=== PATIENT | male | born 1970 | race Caucasian/White ===

== ENCOUNTER 2016-08-29 20:53 | Emergency (ER) | payer BC ==
[~2016-08-29] VITALS: Ht 175.3 cm; Wt 110.5 kg
[~2016-08-29 20:53] MED LIST: AMOXICILLIN 8751 TAB PO; NORCO 325 MG-51 TAB PO
[2016-08-29 20:56] VITALS: TEMP 98.5
[2016-08-29] MEDS ORDERED: PRINZIDE 25 MG-1 TAB PO (20:58)
[2016-08-29 21:29] LABS: BASO % 0.5 % (0.0-2.0); EOS # 0.2 (0.0-0.7); EOS % 2.7 % (0-4.0); GRAN % 47.2 % (42.2-75.2); HEMATOCRIT 47.5 % (42.0-52.0); HEMOGLOBIN 15.9 g/dl (13.5-18.0); LYMPH # 3.5 (1.2-3.4); LYMPH % 41.5 % (20.0-51.0); MEAN CELL VOLUME 88 fl (80.0-100.0); MEAN CORPUSCULAR HEMOGLOBIN 29 pg (27.0-31.0); MEAN CORPUSCULAR HGB CONC 34 g/dl (33.0-37.0); MEAN PLATELET VOLUME 10.9 fl (7.4-10.4); MONO # 0.7 (0.1-0.6); MONO % 7.9 % (1.7-9.3); PLATELET COUNT 210 K/mm3 (130-400); RED BLOOD COUNT 5.41 M/mm3 (4.20-5.60); REDCELL DISTRIBUTION WIDTH-CV 12.7 % (11.5-14.5); WHITE BLOOD COUNT 8.4 K/mm3 (4.8-10.8)
[2016-08-29 21:37] LABS: PH 6 (5-8); SQUAMOUS EPITHELIAL None Seen /hpf; URINE APPEARANCE Clear; URINE BACTERIA None Seen /hpf; URINE BILIRUBIN Negative (NEGATIVE); URINE BLOOD Negative (NEGATIVE); URINE COLOR Yellow; URINE GLUCOSE Negative (NEGATIVE); URINE KETONE Negative (NEGATIVE); URINE RBC None Seen /hpf; URINE WBC 0-2 /hpf
[2016-08-29 22:04] LABS: ADJUSTED CALCIUM 9.1 mg/dL (8.4-10.2); ALANINE AMINOTRANSFERASE 64 U/L (21-72); ALBUMIN 4.4 gm/dL (3.5-5.0); ALKALINE PHOSPHATASE 87 U/L (50-136); ANION GAP 12 mmol/L (7-16); BLOOD UREA NITROGEN 16 mg/dL (9-20); C-REACTIVE PROTEIN < 0.5 mg/dL (0.0-0.9); CALCIUM 9.4 mg/dL (8.4-10.2); CARBON DIOXIDE 29 mmol/L (22-30); CHLORIDE 100 mmol/L (98-107); GLUCOSE 103 mg/dL (74-106); LIPASE 54 U/L (23-300); POTASSIUM 4.1 mmol/L (3.4-5.0); SODIUM 141 mmol/L (137-145); TOTAL PROTEIN 7.7 gm/dL (6.4-8.2)
[2016-08-29 22:14] LABS: TROPONIN-I < 0.012 ng/mL (0.000-0.034)
[2016-08-29] MEDS ORDERED: ZOFRAN 4MG T4 MG/TAB PO (23:05)
[2016-08-29] MEDS ORDERED: NORCO 325 MG-51 TAB PO (23:05)
[2016-08-29 23:17] VITALS: BP 140/90; PULSE 89
== END 2016-08-29 23:18 | disposition home or self-care (01) ==
LOC: COL.ER 20:53 → EDBD 20:53 → COL.ER 21:01
PROVIDERS: Emergency Medicine
DX: R10.84 Generalized abdominal pain (principal); I10 Essential (primary) hypertension; F17.210 Nicotine dependence, cigarettes, uncomplicated
CPT/HCPCS: J1170; J2405; J7030; Q9967

== ENCOUNTER → 2016-09-06 | Outpatient (CLI) | payer BC ==
[~2016-09-06] MED LIST changes: +ATIVAN 0.50.5 MG/TAB PO; +NORCO 325 MG-7.1 TAB PO; +PRINZIDE 25 MG-1 TAB PO; +ZOFRAN 4MG T4 MG/TAB PO
== END ==
LOC: COL.RAD 12:45
DX: K80.80 Other cholelithiasis without obstruction (principal); K76.0 Fatty (change of) liver, not elsewhere classified

== ENCOUNTER → 2016-11-07 | Outpatient (REF) ==
[2016-11-07 14:36] LABS: HIV 1/2 Antibodies Non-Reactive; HIV-1p24 Antigen Non-Reactive
[2016-11-08 00:15] LABS: HEPATITIS B SURFACE AB-QL Negative (())
== END ==
LOC: ZMSC 13:49
PROVIDERS: Surgery
DX: Z01.89 Encounter for other specified special examinations (principal)

== ENCOUNTER 2016-11-15 13:25 | Emergency (ER) | payer BC ==
[~2016-11-15] VITALS: Ht 175.3 cm; Wt 108.2 kg
[~2016-11-15 13:25] MED LIST changes: -ATIVAN 0.50.5 MG/TAB PO; -NORCO 325 MG-7.1 TAB PO
[2016-11-15 13:31] VITALS: TEMP 97.3
[2016-11-15 13:46] LABS: BASO % 0.4 % (0.0-2.0); EOS # 0.2 (0.0-0.7); EOS % 1.9 % (0-4.0); GRAN # 5.8 (1.4-6.5); GRAN % 63.1 % (42.2-75.2); HEMATOCRIT 45.8 % (42.0-52.0); HEMOGLOBIN 15.6 g/dl (13.5-18.0); LYMPH # 2.5 (1.2-3.4); LYMPH % 27.1 % (20.0-51.0); MEAN CELL VOLUME 87 fl (80.0-100.0); MEAN CORPUSCULAR HEMOGLOBIN 30 pg (27.0-31.0); MEAN CORPUSCULAR HGB CONC 34 g/dl (33.0-37.0); MEAN PLATELET VOLUME 10.5 fl (7.4-10.4); MONO # 0.7 (0.1-0.6); MONO % 7.2 % (1.7-9.3); PLATELET COUNT 226 K/mm3 (130-400); RED BLOOD COUNT 5.28 M/mm3 (4.20-5.60); REDCELL DISTRIBUTION WIDTH-CV 13.1 % (11.5-14.5); WHITE BLOOD COUNT 9.1 K/mm3 (4.8-10.8)
[2016-11-15 13:47] LABS: PROTHROMBIN TIME 11.1 SECONDS (9.7-12.8)
[2016-11-15 13:49] LABS: PARTIAL THROMBOPLASTIN TIME 32.8 SECONDS (26.0-37.0)
[2016-11-15 13:54] LABS: ADJUSTED CALCIUM 9.3 mg/dL (8.4-10.2); ALANINE AMINOTRANSFERASE 81 U/L (21-72); ALBUMIN 4.5 gm/dL (3.5-5.0); ALKALINE PHOSPHATASE 72 U/L (50-136); ANION GAP 15 mmol/L (7-16); BILIRUBIN,TOTAL 0.8 mg/dL (0.0-1.0); BLOOD UREA NITROGEN 20 mg/dL (9-20); CALCIUM 9.7 mg/dL (8.4-10.2); CARBON DIOXIDE 22 mmol/L (22-30); CHLORIDE 102 mmol/L (98-107); CREATININE, serum 0.86 mg/dL (0.66-1.25); GLUCOSE 151 mg/dL (74-106); POTASSIUM 3.8 mmol/L (3.4-5.0); SODIUM 139 mmol/L (137-145); TOTAL PROTEIN 7.4 gm/dL (6.4-8.2)
[2016-11-15 14:06] LABS: TROPONIN-I < 0.012 ng/mL (0.000-0.034)
[2016-11-15] MEDS ORDERED: NORCO 325 MG-7.1 TAB PO (14:41)
[2016-11-15] MEDS ORDERED: ATIVAN 0.50.5 MG/TAB PO (16:52)
[2016-11-15 17:17] VITALS: BP 100/75; PULSE 107
== END 2016-11-15 17:18 | disposition home or self-care (01) ==
LOC: COL.ER 13:25
PROVIDERS: Family Medicine
DX: R07.89 Other chest pain (principal); I10 Essential (primary) hypertension; I25.2 Old myocardial infarction; F17.210 Nicotine dependence, cigarettes, uncomplicated; Z86.74 Personal history of sudden cardiac arrest; Z98.890 Other specified postprocedural states
CPT/HCPCS: J1885; J2060; J7030